=== PATIENT | male | born 1960 | race Caucasian/White ===

== ENCOUNTER 2016-10-22 00:35 | Observation (INO) | payer OTHER ==
[2016-10-22] VITALS (10 sets, daily range): BP systolic 107–130; BP diastolic 63–84; PULSE 80–102; RESP 10–20; O2SAT 92–97
[~2016-10-22] VITALS: Ht 193 cm; Wt 101.6 kg
[2016-10-22] MEDS ORDERED: Ondansetron 2 mg/mL 2 mL Inj ONE (00:47)
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
[2016-10-22 00:58] LABS: BASOPHILS % (AUTO) 0.3 % (0-3); EOSINOPHILS % (AUTO) 2.1 % (0-5); MONOCYTES % (AUTO) 10.3 % (4-12); Mean Corpuscular Hemoglobin 29.5 pg (27.0-35.0); Mean Corpuscular Volume 84.6 fL (81-100); NEUTROPHILS % (AUTO) 66.3 % (40-74); Platelet Count 314 bil/L (150-400)
[2016-10-22 01:24] LABS: Magnesium 1.8 mg/dL (1.6-2.6); TROPONIN T < 0.010 ug/L (0.0-0.011)
[2016-10-22] MEDS ORDERED: Codeine-APAP 30-300 mg Tablet PO ONE (03:45)
[2016-10-22] MEDS ORDERED: Lactated Ringer's 1,000 ML IV SCH (06:02)
[2016-10-22] MEDS ORDERED: Ondansetron 2 mg/mL 2 mL Inj IVPUSH PRN (06:05)
[2016-10-22] MEDS ORDERED: Codeine-APAP 30-300 mg Tablet PO PRN (06:05)
[2016-10-22] MEDS ORDERED: Alum-Mag Hydrox-Simeth 30 mL Suspension PO PRN (06:05)
[2016-10-22] MEDS ORDERED: Pantoprazole 40 mg ER24 Tablet PO ONE (06:05)
[2016-10-22] MEDS ORDERED: GLIM1TAB PO (07:52)
[2016-10-22] MEDS ORDERED: LISI-571 PO (07:52)
[2016-10-22] MEDS ORDERED: METF1000 PO (07:52)
[2016-10-22] MEDS ORDERED: SIMV20TA4 PO (07:52)
[2016-10-22] MEDS ORDERED: ZOLP10TA5 PO (07:53)
[2016-10-22] MEDS: 0.9% Sodium Chloride 1,000 ML IV SCH ×2 (07:57→19:18)
[2016-10-22] MEDS ORDERED: Polyethylene Glycol (PEG) 17 Gm Powder PO PRN (08:00)
[2016-10-22] MEDS ORDERED: Glucose 40% Oral Gel 15 Gm Tube PO PRN (08:00)
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
[2016-10-22] MEDS ORDERED: Dextrose 10% 250 ML IV PRN (08:55)
[2016-10-22] MEDS: Insulin LISPRO 300 Unit/3 mL Inj SUBQ SCH ×5 (08:59→22:00)
[2016-10-22] MEDS: Codeine-APAP 30-300 mg Tablet PO PRN ×4 (09:00→23:42)
--- NOTE | 2016-10-22 09:27 | DRSVH ---
PROCEDURE: CT BRAIN WITHOUT CONTRAST ([id number]) INDICATIONS: syncope TECHNIQUE: Noncontrast 4.5 mm thick angled axial sections acquired from the foramen magnum to the vertex, with c oronal reformats. COMPARISON: None. FINDINGS: Preliminary report by manager night radiology Image quality: Excellent. CSF spaces: Basal cisterns are patent. No extra-axial fluid collections. Ventricles are symmetrica l in size and shape. There is global volume loss. Brain: No midline shift. No intracranial masses or hemorrhage. Rich-white matter interface is norm al. Chronic lacunar infarcts in the left basal ganglia laterally Skull and face: Calvarium and visualized facial bones are intact, without suspicious lesions. Calcif ications in the internal carotid arteries. Sinuses: Visualized sinuses 3 small retention cyst or polyp in the right maxillary sinus, otherwise sinuses and mastoids are clear. IMPRESSION: 1. No acute intracranial abnormality. 2. Age related cerebral atrophy and mild chronic deep white matter ischemic changes. 3. Chronic lacunar infarcts left basal ganglia. 4. Chronic right maxillary sinusitis. Findings are concordant with the preliminary report. Dictated by: Solomon Raya M.D. on 10/22/2016 at 9:21 Approved by: Solomon Raya M.D. on 10/22/2016 at 9:25
--- NOTE | 2016-10-22 09:43 | DRSVH ---
PROCEDURE: X-RAY CHEST ONE VIEW, PORTABLE ([id number]) INDICATIONS: syncope TECHNIQUE: One view of the chest was acquired. COMPARISON: None. FINDINGS: Surgical changes and devices: None. Lungs and pleura: No pleural effusions or pneumothorax. Lungs are clear. Mediastinum: Mediastinal contours appear normal. Heart size is normal. Bones and chest wall: No suspicious bony lesions. Overlying soft tissues appear unremarkable. IMPRESSION: No acute cardiopulmonary disease. Dictated by: Jose Henriquez Justus Interpreted: Doris Manzanares MD on 10/22/2016 at 8:55 Approved by: Doris Manzanares M.D. on 10/22/2016 at 9:41
--- NOTE | 2016-10-22 09:43 | DRSVH ---
PROCEDURE: X-RAY THORACIC SPINE, 2 VIEWS INDICATIONS: syncope/fall TECHNIQUE: 3 views of the thoracic spine were acquired. COMPARISON: [facility], CR, XR CHEST 1VW (PORTABLE), 10/22/2016, 1:15. FINDINGS: Bones: No fractures or dislocations. No suspicious bony lesions. 12 pairs of ribs are noted, and a ppear intact where visualized. Mild dextroscoliosis involving the upper thoracic spine. Flow and mu ltilevel osteophytes are present with ossification of the anterior longitudinal ligament as well as " squaring" appearance of the vertebral bodies. Multilevel disc degeneration present. Soft tissues: No paravertebral stripe thickening. IMPRESSION: 1. No fracture. 2. Sequela of radiographic findings within the thoracic spine which would raise the question of ankyl osing spondylitis. Recommend clinical correlation and if indicated CT could be performed for further assessment. Dictated by: Jose Henriquez [facility] Interpreted: Doris Manzanares MD on 10/22/2016 at 9:12 Approved by: Doris Manzanares M.D. on 10/22/2016 at 9:41
--- NOTE | 2016-10-22 09:53 | NUR ---
Social Work-initial assessment: Data:See initial assessment. Pt is a 56 y/o male who was admitted on 10/22/16 for vagal syncope per H&P. Pt's insurance is [employer] and PCP is Dr. Ferraro at [facility]. EMR reviewed. SW met with pt at bedside, SW role explained. Pt is alert and oriented x3. Pt resides at home alone in a single level home in [facility] where he remains independent with ADLS. Pt uses either a cane or fww at baseline and does drive. Pt has history of HH in 2010, but cannot remember the name of the company and he has no SNF history. Pt has no terminal supervisor care insurance or VA benefits. SW discussed DPOA/ advanced directive, information has been provided. Pt confirms he does have insurance and his mother is bringing in his insurance card today, pt states it is blue cross/blue [employer]. No concerns noted at this time for pt's capacity for self care per RN or MD. MD has placed an order for PT evaluation. SW provided pt with discharge planning checklist and encouraged pt to call with any questions, phone number provided on white board in room. SW to follow up post PT if needs arise and MD Orders. Pt confirms his mother or friend will provide transport home. SW will continue to follow. Assessment:Pt has is independent at baseline. Plan:Pt to discharge home when medically stable via POV. PT evaluation is pending. SW to follow up post PT if needs arise and MD Orders. SW will continue to follow. LIVIA Galvan Addendum: 10/22/16 at 0958 by FLORINA EDEN Amended: Links added.
--- NOTE | 2016-10-22 15:13 | DRSVH ---
[facility] [address] [facility] [place] [address] Echocardiogram Report Name: JOSÉ COLORADO Study Date: 10/22/2016 Height: 76 in Hospital Exam Location: [facility] Weight: 223 lb Gender: Male BSA: 2.3 m2 : 1960 Age: 56 yrs BP: 130/84 mmHg Reason For Study: Syncope Ordering Physician: Performed By: Franchesca Paulino Interpretation Summary 1. Normal left ventricular size, wall thickness and systolic function with an estimated EF of 55 to 60% 2. Normal right ventricular size and systolic function. The estimated right atrial pressure is low. 3. No evidence for valvular pathology 4. A saline contrast study is positive for an interatrial shunt. There is no old study for comparison Procedure: A two-dimensional transthoracic echocardiogram with color flow and Doppler was performed. The study quality was technically adequate. There is no prior echocardiogram noted for this patient. The patient was in normal sinus rhythm during the exam. The patient had occasional PVCs during the exam. Left Ventricle: The left ventricle is normal in size. There is normal left ventricular wall thickness. The ejection fraction is estimated to be 55-60%. Septal motion is consistent with conduction abnormality. No obvious focal wall motion abnormalities. Assessment of diastolic parameters indicates a relaxation abnormality of the left ventricle, consistent with normal filling pressures. Right Ventricle: The right ventricle is normal in size and function. Atria: Both atria are normal in size. The atrial septum is aneurysmal. Injection of contrast documented an interatrial shunt. Mitral Valve: Leaflets appear thin with normal excursion. There is no mitral regurgitation noted. Aortic Valve: The aortic valve is trileaflet. The aortic valve opens well. No aortic regurgitation is present. Tricuspid Valve: The tricuspid valve is not well visualized, but is grossly normal. No tricuspid regurgitation. Pulmonary artery pressures cannot be estimated because of the lack of a measurable TR jet velocity. Pulmonic Valve: The pulmonic valve is not well seen, but is grossly normal. There is trace pulmonic regurgitation. Great Vessels: The aortic root is normal size. The ascending aorta is at the upper limits of normal in size. The IVC is of normal diameter and collapses greater than 50% with a sniff. This suggests a low right atrial pressure of 3 mm Hg. Pericardium/ Pleura There is no pericardial effusion. MMode/2D Measurements & Calculations LVIDd: 4.6 cm RA long axis LVOT diam LVIDs: 3.3 cm LA A2 area: 17.7 cm FS: 28.2 % LA A4 area: 14.3 cm RA area AoV Opening EPSS: 0.85 cm LA length (vol): 5.0 cm IVSd: 0.95 cm LA vol: 43.3 ml : 12.4 cm Ao root diam LVPWd: 0.98 cm LA vol index RA vol : 29.6 ml Aortic Jxn RA IVC diam: 1.0 cm : 12.8 mm2 asc Aorta Diam: 3.4 cm LV chavarria. diameter/BSA LV sys. diameter/BSA RVD1 (basal) RVD2 (mid) (cm/m^2): 2.0 (cm/m^2): 1.4 : 2.8 cm TAPSE: 1.8 cm Doppler Measurements & Calculations Ao V2 max MV E max brad MV E/A: 0.70 PA V2 max : 164.7 cm/sec : 78.3 cm/sec Med Peak E' Brad : 71.3 cm/sec Ao max P.8 mmHg MV A max brad PA mean PG Ao mean P.1 mmHg : 112.2 cm/sec E/E' med: 11.2 LVOT Max Brad Lat Peak E' Brad PA Accel Time : 123.5 cm/sec : 0.13 sec E/E' lat: 7.6 FELIPA(I,D): 3.3 cm E/e' average: 9.4 sev ratio: 0.76 MV dec time: 0.24 sec Ao V2 mean LV V1 max PG PA V2 mean : 130.1 cm/sec : 55.7 cm/sec Ao V2 VTI: 31.0 cmLV V1 VTI: 23.6 cm FELIPA(V,D): 3.3 cm2 FELIPA indexed to BSA (cm^2/m^2): 1.4 Reading Physician:03:12 PM
[2016-10-22] MEDS ORDERED: BUPRENORPHINE 0.3 MG/ML IV PRN (15:40)
[2016-10-22] MEDS ORDERED: Acetaminophen IV 1,000 MG in IV Premix 1 EACH IV PRN (15:45)
--- NOTE | 2016-10-22 15:54 | DRSVH ---
PROCEDURE: US BILATERAL DUPLEX DOPPLER IMAGING OF THE CAROTIDS ([id number]) INDICATIONS: syncope TECHNIQUE: Color and pulse Doppler interrogation was performed of both carotid systems, with image documentation and velocity measurements. COMPARISON: None. FINDINGS: All stenosis calculations are based on NASCET criteria. Right side: Brachial blood pressure: 113/71 mm Hg. Common Carotid Artery(Distal) PSV: 113.90 cm/s Internal Carotid Artery PSV- Proximal: 101 cm/s Mid-lon.70 cm/s Distal: 102.60 cm/s EDV - Proximal: 23.60 cm/s Mid-lon.80 cm/s Distal: 26.10 cm/s External Carotid Artery(Proximal) PSV: 147.20 cm/s ICA/CCA PSV ratio: 1.1 Rich scale imaging description: Minimal plaque. Percent internal carotid artery stenosis: 50-69% stenosis. Vertebral artery: Flow direction is antegrade. Left side: Brachial blood pressure: 117/69 mm Hg. Common Carotid Artery(Distal) PSV: 136.30 cm/s Internal Carotid Artery PSV - Proximal: 112.50 cm/s Mid-lon.20 cm/s Distal: 99.50 cm/s EDV - Proximal: 22.20 cm/s Mid-lon.40 cm/s Distal: 24.90 cm/s External Carotid Artery(Proximal) PSV: 106.90 cm/s ICA/CCA PSV ratio: 0.8 Rich scale imaging description: Minimal plaque. Percent internal carotid artery stenosis: Less than 50% stenosis. Vertebral artery: Flow direction is antegrade. IMPRESSION: 1. 50-69% right internal carotid artery stenosis. 2. Less than 50% left internal carotid artery stenosis. Dictated by: Jose HUANG Interpreted: Vivek Raya MD on 10/22/2016 at 14:45 Approved by: Solomon Raya M.D. on 10/22/2016 at 15:52
[2016-10-22] MEDS ORDERED: HYDROmorphone 0.5 mg/0.5 mL iSecure Syringe IVPUSH PRN (16:14)
--- NOTE | 2016-10-22 19:16 | DRSVH ---
PROCEDURE: MRI STROKE PROTOCOL ([id number]) Pre- and post-contrast brain MRI, non-contrast brain MR angiogram, pre- and postcontrast neck MR jaziel ogram INDICATIONS: syncope, r/o stroke TECHNIQUE: Brain: Noncontrast axial T1 spin echo, axial T2 fast spin echo, sagittal and axial FLAIR, coronal T2 fast spin echo, axial gradient echo, axial diffusion and ADC through the brain. After the administr ation of contrast, axial 3D VIBE of the cranial vasculature and brain. Brain MRA: Non-contrast 3-D time of flight MR angiogram, with multiple xcrfqmf-zykoqglhk-pljdjgdvcb (MIP) reformats performed. Neck MRA: Axial and sagittal TruFISP through the neck. Coronal dynamic MR angiogram during administ ration of contrast in the arterial and venous phases, with 3-dimenstional umumiiv-ohtlqbcho-zbvkoljiv n (MIP) reformats constructed from subtraction images. COMPARISON: [facility], CT, CT BRAIN WO CON, 10/22/2016, 1:12. FINDINGS: Image quality: Excellent. BRAIN: The ventricular system and cortical sulci demonstrate atrophy, consistent for the patient's stated ag e. There are areas of increased T2/FLAIR signal intensity within the periventricular and subcortical white matter. There is no acute intra-or extra axial fluid collection. No acute hemorrhage, or midli ne shift. There is a.c. signal focus arising from the quadrigeminal plate cistern and projecting post erior left laterally. It is nonenhancing and measures approximately 37 mm transverse by 29 mm AP. It overlies the left posterior horn of the lateral ventricle. There is no surrounding mass effect. There is no enhancement. Brainstem is unremarkable. There are no areas of restricted diffusion. Globes are symmetrical. Sinuses are aerated. Osseous structures are intact. BRAIN MR ANGIOGRAM: The posterior circulation demonstrates a minimal right vertebral artery dominance. Basilar artery and posterior cerebral arteries demonstrate no areas of hemodynamically significant stenosis, vascular o cclusion or aneurysmal dilation. Posterior communicating arteries are within normal limits. The anterior circulation, including the anterior and middle cerebral arteries, as well as internal ca rotid arteries demonstrates no areas of hemodynamically significant stenosis, vascular occlusion or a neurysmal dilation. NECK MR ANGIOGRAM: The origins of the left and right common, internal and external carotid arteries demonstrate no areas of hemodynamically significant stenosis, vascular occlusion or aneurysmal dilation. Origins of the l eft and right vertebral arteries demonstrate no areas of hemodynamically significant stenosis, vascul ar occlusion or aneurysmal dilation. Aortic arch demonstrates conventional anatomy. Limited, visualiz ed portions subclavian vasculature are unremarkable. IMPRESSION: 1. No acute intracranial process. No acute ischemia. 2. No areas of hemodynamically significant stenosis, vascular occlusion or aneurysmal dilation within the anterior circulation. 3. No areas of hemodynamically significant stenosis, vascular occlusion or aneurysmal dilation within the posterior circulation. 4. No areas of hemodynamically significant stenosis, vascular occlusion or aneurysmal dilation within the neck vasculature. 5. 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 The estimate of stenosis included in the report of the imaging study was calculated using the NASCET method Dictated by: Lisa Quevedo M.D. on 10/22/2016 at 19:06 Approved by: Lisa Quevedo M.D. on 10/22/2016 at 19:14
--- NOTE | 2016-10-22 19:21 | NUR ---
Pain Pain satisfactorily controlled with Flexeril TID and Tylenol with codeine q 4 hours with ice applied to his lower back. Per the patient this has allowed him to nap and relax a bit. Unable to participate with PT or have orthostatic BP's done though due to his back pain. IV Toradol given for MRI procedure.
--- NOTE | 2016-10-22 19:40 | PCM.ADCARE ---
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 long Bone Decisional Capacity: Good Subjective: I reviewed his current medical conditions new-onset syncope, diabetes mellitus, chronic severe pain and aggressive care including intubation and potential mechanical ventilation should he be unable to breath on his own; also discussed who would speak on his behalf should she be unable to do so and discussed what conversation he had had with her family so they understand his desires if such situation occurred now or in the future. 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 Is here for a syncope workup. His diabetes and hyperlipidemia are well controlled. He has no alcohol or smoking habits. We will help patient determine the etiology of his syncope, and offer him appropriate therapy to get back to his baseline Plan: Diagnostic workup that includes cardiac echo, carotid ultrasound, MR stroke protocol were ordered Physical therapy, pain control for back pain CODE STATUS: Full code Alternate decision makers: Parents followed by siblings Time Spent Adv.Care Planning: Total time spent [id number] and education directly related to advanced planning 30 min Adv. Care Plan Documenation: As above and also documented in the H&P Veronica Bone DO Oct 22, 2016 19:39
[2016-10-23] VITALS (9 sets, daily range): BP systolic 100–145; BP diastolic 65–83; PULSE 70–93; RESP 16–22; O2SAT 92–94
--- NOTE | 2016-10-23 02:34 | NUR ---
Activity/Pain Patient in bed all of shift so far d/t back pain. Rating it about a 4/10 upon assessments. Receiving Tylenol with Codeine with effective results. Noted to be resting with eyes closed upon reassessments.
[2016-10-23] MEDS: Codeine-APAP 30-300 mg Tablet PO PRN ×4 (03:59→22:00)
[2016-10-23] MEDS: 0.9% Sodium Chloride 1,000 ML IV SCH ×2 (04:50→15:14)
[2016-10-23] MEDS: Insulin LISPRO 300 Unit/3 mL Inj SUBQ SCH ×4 (10:29→21:50)
--- NOTE | 2016-10-23 11:08 | NUR ---
Evaluation completed. Please go to "Notes" then click on "Assessments and Notes" (bottom left corner of screen). Then select appropriate discipline tab on top of screen.
--- NOTE | 2016-10-23 13:37 | NUR ---
Evaluation completed. Please go to "Notes" then click on "Assessments and Notes" (bottom left corner of screen). Then select appropriate discipline tab on top of screen.
--- NOTE | 2016-10-23 13:51 | NUR ---
Social Work- Readiness for Discharge/Multidisciplinary Rounds Data: EMR reviewed. Pt is on day 1 of hospitalization under observation. Pt discussed in multidisciplinary rounds, pt to be seen by PT today. No SW needs identified in rounds. Pt is anticipated to d/c tomorrow. SW met with pt at bedside to check in and assess for any unmet needs. Pt denied any questions or concerns related to discharge. PT has evaluated pt, recommending home with progression of mobility. Pt has AD at home and no steps to enter. SW will continue to follow. Assessment: Pt who is independent at baseline with ADLs and self-care. Plan: Pt likely to d/c home with mother to transport via POV. Pt is likely to be cleared for home by PT pending progress tomorrow. Pt has necessary AD at home as needed for discharge. SW will continue to follow for discharge planning needs. LIVIA Chris
--- NOTE | 2016-10-23 15:37 | NUR ---
MOBILITY Patient was able to sit on edge of bed with some assist getting there. States the pain between shoulder blades is gone today. Pain still present in mid-lower back. Administered IV dilaudid prior to patient working with PT, patient was able to stand and take a few steps at bedside. Continuing to manage pain with tylenol #3 and flexeril.
--- NOTE | 2016-10-23 16:52 | PCM.PNMED ---
Subjective Date of Service Oct 23, 2016 Subjective Patient is seen and examined. He states that he was able to get up today for orthostatic blood pressure checks, did work with PT OT a little bit today he did accept IV Dilaudid for pain control today. He is agreeable to taking the pain medication and starting to work with physical therapy. Discussed diagnosis , workup, imaging, and treatment plan with patient and he expressed an verbalized his understanding. Exam Vital Signs Vital Sign - Last Date Time Temp Pulse Resp B/P Pulse Ox O2 Delivery O2 Flow Rate FiO2 10/23/16 14:56 36.3 76 16 116/73 92 Room Air Intake and Output 10/22/16 10/22/16 10/23/16 Cumulative From/Thru 15:00 23:00 07:00 10/22/16 00:45 - 10/23/16 06:41 Intake Total 2348 ml 1207 ml 3555 ml Output Total 100 ml 200 ml 300 ml Balance 2248 ml 1007 ml 3255 ml Intake Oral 1372 ml 250 ml 1622 ml IV Total 976 ml 957 ml 1933 ml Output Urine Total 100 ml 200 ml 300 ml # Bowel Movements 1 1 Exam Gen.: No acute distress laying in bed HEENT: Normocephalic, atraumatic Heart: Regular rate and rhythm no murmurs Lungs clear to auscultation bilaterally on anterior auscultation was possible Abdomen large obese, soft nondistended Extremities atrophic UE and LE as before, extremities have no swelling. Neurological: No focal deficits alert and oriented by 3 Lab and Diagnostics Result Diagram: 10/22/16 0054 10/23/16 0550 X-Rays, CTs and MRIs PROCEDURE: X-RAY THORACIC SPINE, 2 VIEWS INDICATIONS: syncope/fall T IMPRESSION: 1. No fracture. 2. Sequela of radiographic findings within the thoracic spine which would raise the question of ankylosing spondylitis. Recommend clinical correlation and if indicated CT could be performed for further assessment. Dictated by: Jose HUANG Interpreted: Doris Manzanares MD on 10/22/2016 at 9:12 Approved by: Doris Manzanares M.D. on 10/22/2016 at 9:41 PROCEDURE: US BILATERAL DUPLEX DOPPLER IMAGING OF THE CAROTIDS ([id number]) INDICATIONS: syncope IMPRESSION: 1. 50-69% right internal carotid artery stenosis. 2. Less than 50% left internal carotid artery stenosis. Dictated by: Jose Henriquez RR Interpreted: Vivek Raya MD on 10/22/2016 at 14: 45 Approved by: Solomon Raya M.D. on 10/22/2016 at 15:52 PROCEDURE: CT BRAIN WITHOUT CONTRAST ([id number]) INDICATIONS: syncope IMPRESSION: 1. No acute intracranial abnormality. 2. Age related cerebral atrophy and mild chronic deep white matter ischemic changes. 3. Chronic lacunar infarcts left basal ganglia. 4. Chronic right maxillary sinusitis. Findings are concordant with the preliminary report. Dictated by: Solomon Raya M.D. on 10/22/2016 at 9:21 Approved by: Solomon Raya M.D. on 10/22/2016 at 9:25 Cardiac Echo Impressions Echocardiogram Report Name: JOSÉ COLORADO Study Date: 10/22/2016 Height: 76 in Hospital Exam Location: [facility] Weight: 223 lb Gender: Male BSA: 2.3 m2 : 1960 Age: 56 yrs BP: 130/84 mmHg Reason For Study: Syncope Ordering Physician: Performed By: Franchesca Paulino Interpretation Summary 1. Normal left ventricular size, wall thickness and systolic function with an estimated EF of 55 to 60% 2. Normal right ventricular size and systolic function. The estimated right atrial pressure is low. 3. No evidence for valvular pathology 4. A saline contrast study is positive for an interatrial shunt. Reading Physician:03:12 PM Assessment & Plan This is a 56-year-old male with chronic back pain issues baseline muscle weakness and gait instability due to remote injuries , better control diabetes , hyperlipidemia for which she is on a statin is presenting after suffering syncopal events at home Assessment # syncope secondary to vasovagal response resolved upon arrival to ER acute -- Carotid ultrasound is ordered: Shows 50-69% right internal carotid artery stenosis. -- Cardiac echo was ordered and performed: Showed no valvular pathology but is remarkable for intra-atrial shunt, increased risk for stroke -- Trend troponins neg, telemetry monitoring: Negative -- Upon reviewing the echo and carotid scan, MRI stroke protocol is ordered, as his neuro exam was a difficult one Horacio to baseline deficits, also notable for some speech, unclear what his baseline is -- MR sTroke showed no conern for acute stroke -- Requested records from [facility] system from his PCP Dr. Mauro -- TSH with in the normal, Lipid panel within normal, A1c 5.9 -- Discuss with the patient that he cannot drive a motor vehicle until cleared by his PCP -- UAs ordered reflex culture: This has not been a sent, follow-up with nursing in the a.m. -- Swallow evaluation: Patient is not thought to be at risk for aspiration -- Daily aspirin -- Discussed not driving a motor vehicle till he seen by PCP. Patient verbalized his understanding -- We will discuss a plan for his follow-up for intra-arterial shunt as well as arachnoid cyst per [facility]: I have pushed images so to them, have not had a chance to call them. Please call and discuss this with [facility] in the a.m. -- Orthostatics are not yet performed, follow-up with nursing in the a.m. Assessment # dehydration active -- Based on patient's BUN, concentrated urine , he appears to be dehydrated -- We will consider increase to 1 50 mL/h -- UAs ordered reflex culture: This has not been a sent, follow-up with nursing in the a.m. Assessment # of back pain and chronic acutely worsened and present on admission -- He only takes Tylenol codeine, Flexeril and Lidoderm patch at home, was able to manage for the most part, currently not able to get up out of the bed -- 0.25 mg IV Dilaudid every 3 hours when necessary, continue methocarbamol 1000 mg 4 times a day when necessary, Tylenol No. 3 2 tablets every 4 hours when necessary. Continue ketorolac IV -- Physical therapy is ordered Assessment #diabetes type II [id number] chronic presumed well controlled -- Hold glimepiride and metformin PO medications -- low sliding scale insulin, before meals it just checks -- A1c is ordered and 5.9 showing good control Assessment # hyperlipidemia chronic presumed well-controlled -- -- Continue home medications Assessment # leukocytosis acute present on admission resolved -- Could be leukomoid reaction -- Monitor with daily labs Assessment # concern for ankylosing spondylitis probably chronic -- Based on thoracic spine and C-spine neck x-rays -- HLA-B27 is ordered, as well as ESR and CRP -- SI joint B/L imaging to check for fusion Assessment #arachnoid cyst chronic active -- As noticed on patient's MRI -- Mildly symptomatic once a treated but up-to-date. Symptoms include seizures , focal neurological deficits etc. -- Discuss f/u with [facility] neuro prior to discharge Code Status: Full Code: POA: Parents followed by siblings High-risk medication: Dilaudid IV Patient is admitted under Inpatient status with expected length of stay greater than 2 midnights due to severity of presenting symptoms, risk of adverse event, and complexity of treatment plan. Patient related to mobilize better before going home, increased pain medication and physical therapy. He is asked not to drive a motor vehicle unless cleared by PCP. Pain Evaluation: Adequate Pain Control Resuscitation Status: CPR: Attempt Resuscitation (parents followed by siblings are at the ADM) Time spent 30 min Veronica Bone DO Oct 23, 2016 16:52
[2016-10-24 00:14] VITALS: BP 102/67; PULSE 71; RESP 18; O2SAT 93
[2016-10-24 02:56] LABS: APPEARANCE,URINE CLEAR (CLEAR,HAZY); COLOR,URINE YELLOW (YELLOW); OCCULT BLOOD,URINE NEGATIVE (NEGATIVE); PH,URINE 5.5 (5.0-8.0); UROBILINOGEN,URINE NORMAL (NORMAL)
[2016-10-24] MEDS: 0.9% Sodium Chloride 1,000 ML IV SCH (04:32)
[2016-10-24 04:37] VITALS: BP 110/67; PULSE 71; RESP 16; O2SAT 91
--- NOTE | 2016-10-24 06:15 | NUR ---
Activity Pt using urinal in bed. Has not been OOB this shift. Repositions ind in bed. Had c/o pain to low back 4 out of 10 -ordered Flexeril and Tylenol #3 helps alleviate pain, given once this shift. Pt agrees to get OOB this a.m. to attempt orthostatic BP's. Has had no c/o dizziness/N/V/CP this shift. Uses home CPAP HS and is RA during the day. SAO2 91-93%. Per MD, NS increased to 150mls/H, UA was collected and sent, lungs sounds remain clear with reassess this a.m.
[2016-10-24] MEDS: Insulin LISPRO 300 Unit/3 mL Inj SUBQ SCH ×2 (08:00→12:00)
[2016-10-24 09:36] VITALS: BP 154/90; PULSE 92; RESP 16; O2SAT 96
[2016-10-24 09:46] VITALS: BP 154/84; PULSE 110; RESP 18
[2016-10-24 09:57] VITALS: PULSE 62
--- NOTE | 2016-10-24 13:27 | PCM.PNMED ---
Subjective Date of Service Oct 24, 2016 Subjective Patient notes that he feels a bit better this morning. Back pain is less severe. Exam Vital Signs Vital Sign - Last Date Time Temp Pulse Resp B/P Pulse Ox O2 Delivery O2 Flow Rate FiO2 10/24/16 11:34 Room Air 10/24/16 09:57 62 10/24/16 09:46 18 154/84 10/24/16 09:36 36.7 96 Intake and Output 10/23/16 10/23/16 10/24/16 Cumulative From/Thru 15:00 23:00 07:00 10/22/16 00:45 - 10/24/16 06:13 Intake Total 2565 ml 1560 ml 7680 ml Output Total 700 ml 910 ml 1910 ml Balance 1865 ml 650 ml 5770 ml Intake Oral 1344 ml 500 ml 3466 ml IV Total 1221 ml 1060 ml 4214 ml Output Urine Total 700 ml 910 ml 1910 ml # Bowel Movements 0 1 Exam Constitutional: Middle-aged male in no acute distress Head: Normocephalic atraumatic Chest: Clear to auscultation Cor: Regular rate and rhythm S1-S2 without murmur Abdomen: Soft nontender bowel sounds present Extremities: No pedal edema Neuro: Alert and oriented 3, motor strength is intact bilaterally Lab and Diagnostics Laboratory Tests 72 Hours Test 10/22/16 00:54 10/22/16 06:28 10/22/16 12:33 10/23/16 05:50 White Blood Count 12.0th/mm3 (3.8-10.1) Red Blood Count 5.45mil/mm3 (4.40-5.80) Hemoglobin 16.1g/dL (13.8-17.2) Hematocrit 46.1% (41.0-50.0) Mean Corpuscular Volume 84.6fL (81-100) Mean Corpuscular Hemoglobin 29.5pg (27.0-35.0) Mean Corpuscular Hemoglobin Concent 34.9% (32.0-37.0) Red Cell Distribution Width 13.9% (12.3-15.4) Platelet Count 314bil/L (150-400) Neutrophils (%) (Auto) 66.3% (40-74) Lymphocytes (%) (Auto) 20.7% (14-46) Monocytes (%) (Auto) 10.3% (4-12) Eosinophils (%) (Auto) 2.1% (0-5) Basophils (%) (Auto) 0.3% (0-3) Sodium Level 141mEq/L (134-144) 138mEq/L (134-144) Potassium Level 4.1mEq/L (3.5-5.2) 4.1mEq/L (3.5-5.2) Chloride Level 102mEq/L (97-108) 105mEq/L (97-108) Carbon Dioxide Level 18mmol/L (18-29) 19mmol/L (18-29) Blood Urea Nitrogen 15mg/dL (6-24) 23mg/dL (6-24) Creatinine 0.79mg/dL (0.76-1.27) 0.73mg/dL (0.76-1.27) Estimat Glomerular Filtration Rate 107mL/min (>59) 118mL/min (>59) Glucose Level 157mg/dL (60-99) 147mg/dL (60-99) Hemoglobin A1c 5.9% (4.8-5.6) Calcium Level 9.4mg/dL (8.5-10.1) 8.2mg/dL (8.5-10.1) Magnesium Level 1.8mg/dL (1.6-2.6) 1.7mg/dL (1.6-2.6) Total Bilirubin 0.5mg/dL (0.0-1.2) 0.8mg/dL (0.0-1.2) Aspartate Amino Transf (AST/SGOT) 14U/L (0-50) 11U/L (0-50) Alanine Aminotransferase (ALT/SGPT) 18U/L (0-44) 12U/L (0-44) Alkaline Phosphatase 73U/L (25-150) 55U/L (25-150) Troponin T < 0.010ug/L (0.0-0.011) 0.010ug/L (0.0-0.011) < 0.010ug/L (0.0-0.011) Total Protein 7.5g/dL (6.4-8.4) 6.0g/dL (6.4-8.4) Albumin 4.1g/dL (3.4-5.0) 3.3g/dL (3.4-5.0) Thyroid Stimulating Hormone (TSH) 1.260uIU/mL (0.450-4.500) Erythrocyte Sedimentation Rate 4mm/hr (0-30) C-Reactive Protein 4.4mg/dL (0.0-0.5) Triglycerides Level 103mg/dL (0-149) Cholesterol Level 118mg/dL (100-199) LDL Cholesterol, Calculated 64.400mg/dL (0-99) VLDL Cholesterol 20.600mg/dL HDL Cholesterol 33mg/dL (>39) Cholesterol/HDL Ratio 3.58 (0.0-4.4) Test 10/23/16 17:24 10/24/16 02:45 10/24/16 06:32 Urine Color Yellow (YELLOW) Urine Appearance Clear (CLEAR,HAZY) Urine pH 5.5 (5.0-8.0) Urine Specific [place] 1.015 (1.003-1.035) Urine Protein Negativemg/dL (NEG,TRACE) Urine Glucose (UA) Negativemg/dL (NEGATIVE) Urine Ketones Negativemg/dL (NEGATIVE) Urine Occult Blood Negative (NEGATIVE) Urine Nitrite Negative (NEGATIVE) Urine Bilirubin Negative (NEGATIVE) Urine Urobilinogen Normalmg/dL (NORMAL) Urine Leukocyte Esterase Negative (NEGATIVE) Urine RBC 0-2/hpf (0-2) Urine WBC 0-5/hpf (0-5) Urine Epithelial Cells Occasional/hpf (NONE-MOD) Urine Crystals None seen (NONE SEEN) Urine Bacteria None/hpf (NONE-FEW) Urine Hyaline Casts None/lpf (NONE) Urine Granular Casts None seen (NONE SEEN) Urine Waxy Casts None seen (NONE SEEN) Urine Red Blood Cell Casts None seen (NONE SEEN) Urine White Blood Cell Casts None seen (NONE SEEN) Urine Mucus None seen (None Seen) Urine Trichomonas None seen (NONE SEEN) Urine Yeast None (NONE SEEN) Urinalysis Comment None Urine Culture Reflexed Not indicated Urine Opiates Screen Positive Urine Methadone Screen Negative Urine Barbiturates Screen Negative Urine Amphetamines Screen Negative Urine Benzodiazepines Screen Negative Urine Cocaine Metabolite Screen Negative Urine Cannabinoids Screen Negative White Blood Count 4.9th/mm3 (3.8-10.1) Sodium Level 138mEq/L (134-144) Potassium Level 4.2mEq/L (3.5-5.2) Chloride Level 104mEq/L (97-108) Carbon Dioxide Level 20mmol/L (18-29) Blood Urea Nitrogen 13mg/dL (6-24) Creatinine 0.61mg/dL (0.76-1.27) Estimat Glomerular Filtration Rate 145mL/min (>59) Glucose Level 111mg/dL (60-99) Calcium Level 8.5mg/dL (8.5-10.1) Result Diagram: 10/24/16 0632 10/24/16 0632 X-Rays, CTs and MRIs PROCEDURE: X-RAY THORACIC SPINE, 2 VIEWS INDICATIONS: syncope/fall T IMPRESSION: 1. No fracture. 2. Sequela of radiographic findings within the thoracic spine which would raise the question of ankylosing spondylitis. Recommend clinical correlation and if indicated CT could be performed for further assessment. Dictated by: Jose HUANG Interpreted: Doris Manzanares MD on 10/22/2016 at 9:12 Approved by: Doris Manzanares M.D. on 10/22/2016 at 9:41 PROCEDURE: US BILATERAL DUPLEX DOPPLER IMAGING OF THE CAROTIDS ([id number]) INDICATIONS: syncope IMPRESSION: 1. 50-69% right internal carotid artery stenosis. 2. Less than 50% left internal carotid artery stenosis. Dictated by: Jose HUANG Interpreted: Vivek Raya MD on 10/22/2016 at 14: 45 Approved by: Solomon Raya M.D. on 10/22/2016 at 15:52 PROCEDURE: CT BRAIN WITHOUT CONTRAST ([id number]) INDICATIONS: syncope IMPRESSION: 1. No acute intracranial abnormality. 2. Age related cerebral atrophy and mild chronic deep white matter ischemic changes. 3. Chronic lacunar infarcts left basal ganglia. 4. Chronic right maxillary sinusitis. Findings are concordant with the preliminary report. Dictated by: Solomon Raya M.D. on 10/22/2016 at 9:21 Approved by: Solomon Raya M.D. on 10/22/2016 at 9:25 PROCEDURE: MRI STROKE PROTOCOL ([id number]) Pre- and post-contrast brain MRI, non-contrast brain MR angiogram, pre- and postcontrast neck MR angiogram INDICATIONS: syncope, r/o stroke TECHNIQUE: Brain: Noncontrast axial T1 spin echo, axial T2 fast spin echo, sagittal and axial FLAIR, coronal T2 fast spin echo, axial gradient echo, axial diffusion and ADC through the brain. After the administration of contrast, axial 3D VIBE of the cranial vasculature and brain. Brain MRA: Non-contrast 3-D time of flight MR angiogram, with multiple maximum- intensity-projection (MIP) reformats performed. Neck MRA: Axial and sagittal TruFISP through the neck. Coronal dynamic MR angiogram during administration of contrast in the arterial and venous phases, with 3-dimenstional cpmkxsi-oumhiklsx-aaysdmgvza (MIP) reformats constructed from subtraction images. COMPARISON: [facility], CT, CT BRAIN WO CON, 10/22/2016, 1:12. FINDINGS: Image quality: Excellent. BRAIN: The ventricular system and cortical sulci demonstrate atrophy, consistent for the patient's stated age. There are areas of increased T2/FLAIR signal intensity within the periventricular and subcortical white matter. There is no acute intra-or extra axial fluid collection. No acute hemorrhage, or midline shift. There is a.c. signal focus arising from the quadrigeminal plate cistern and projecting posterior left laterally. It is nonenhancing and measures approximately 37 mm transverse by 29 mm AP. It overlies the left posterior horn of the lateral ventricle. There is no surrounding mass effect. There is no enhancement. Brainstem is unremarkable. There are no areas of restricted diffusion. Globes are symmetrical. Sinuses are aerated. Osseous structures are intact. BRAIN MR ANGIOGRAM: The posterior circulation demonstrates a minimal right vertebral artery dominance. Basilar artery and posterior cerebral arteries demonstrate no areas of hemodynamically significant stenosis, vascular occlusion or aneurysmal dilation. Posterior communicating arteries are within normal limits. The anterior circulation, including the anterior and middle cerebral arteries, as well as internal carotid arteries demonstrates no areas of hemodynamically significant stenosis, vascular occlusion or aneurysmal dilation. NECK MR ANGIOGRAM: The origins of the left and right common, internal and external carotid arteries demonstrate no areas of hemodynamically significant stenosis, vascular occlusion or aneurysmal dilation. Origins of the left and right vertebral arteries demonstrate no areas of hemodynamically significant stenosis, vascular occlusion or aneurysmal dilation. Aortic arch demonstrates conventional anatomy. Limited, visualized portions subclavian vasculature are unremarkable. IMPRESSION: 1. No acute intracranial process. No acute ischemia. 2. No areas of hemodynamically significant stenosis, vascular occlusion or aneurysmal dilation within the anterior circulation. 3. No areas of hemodynamically significant stenosis, vascular occlusion or aneurysmal dilation within the posterior circulation. 4. No areas of hemodynamically significant stenosis, vascular occlusion or aneurysmal dilation within the neck vasculature. 5. 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 The estimate of stenosis included in the report of the imaging study was calculated using the NASCET method Dictated by: Lisa Quevedo M.D. on 10/22/2016 at 19:06 Approved by: Lisa Quevedo M.D. on 10/22/2016 at 19:14 Cardiac Echo Impressions Echocardiogram Report Name: JOSÉ COLORADO Study Date: 10/22/2016 Height: 76 in Hospital Exam Location: [facility] Weight: 223 lb Gender: Male BSA: 2.3 m2 : 1960 Age: 56 yrs BP: 130/84 mmHg Reason For Study: Syncope Ordering Physician: Performed By: Franchesca Paulino Interpretation Summary 1. Normal left ventricular size, wall thickness and systolic function with an estimated EF of 55 to 60% 2. Normal right ventricular size and systolic function. The estimated right atrial pressure is low. 3. No evidence for valvular pathology 4. A saline contrast study is positive for an interatrial shunt. Reading Physician:03:12 PM Assessment & Plan This is a 56-year-old male with chronic back pain issues baseline muscle weakness and gait instability due to remote injuries , better control diabetes , hyperlipidemia for which she is on a statin is presenting after suffering syncopal events at home Assessment # syncope secondary to vasovagal response resolved upon arrival to ER acute -- Carotid ultrasound is ordered: Shows 50-69% right internal carotid artery stenosis. -- Cardiac echo was ordered and performed: Showed no valvular pathology but is remarkable for intra-atrial shunt, increased risk for stroke -- Trend troponins neg, telemetry monitoring: Negative -- Upon reviewing the echo and carotid scan, MRI stroke protocol is ordered, as his neuro exam was a difficult one Horacio to baseline deficits, also notable for some speech, unclear what his baseline is -- MR sTroke showed no conern for acute stroke -- Requested records from [facility] from his PCP Dr. Mauro -- TSH with in the normal, Lipid panel within normal, A1c 5.9 -- Discuss with the patient that he cannot drive a motor vehicle until cleared by his PCP -- UAs ordered reflex culture: This has not been a sent, follow-up with nursing in the a.m. -- Swallow evaluation: Patient is not thought to be at risk for aspiration -- Daily aspirin -- Discussed not driving a motor vehicle till he seen by PCP. Patient verbalized his understanding -- We will discuss a plan for his follow-up for intra-arterial shunt as well as arachnoid cyst per [facility]: I have pushed images so to them, have not had a chance to call them. Please call and discuss this with [place] neuro in the a.m. -- Orthostatics today are negative Assessment # dehydration active -- Based on patient's BUN, concentrated urine , he appears to be dehydrated -- We will consider increase to 1 50 mL/h Assessment # of back pain and chronic acutely worsened and present on admission -- He only takes Tylenol codeine, Flexeril and Lidoderm patch at home, was able to manage for the most part, currently not able to get up out of the bed -- 0.25 mg IV Dilaudid every 3 hours when necessary, continue methocarbamol 1000 mg 4 times a day when necessary, Tylenol No. 3 2 tablets every 4 hours when necessary. Continue ketorolac IV -- Physical therapy is ordered Assessment #diabetes type II [id number] chronic presumed well controlled -- Hold glimepiride and metformin PO medications -- low sliding scale insulin, before meals it just checks -- A1c is ordered and 5.9 showing good control Assessment # hyperlipidemia chronic presumed well-controlled -- -- Continue home medications Assessment # leukocytosis acute present on admission resolved -- Could be leukomoid reaction -- Monitor with daily labs Assessment # concern for ankylosing spondylitis probably chronic -- Based on thoracic spine and C-spine neck x-rays -- HLA-B27 is ordered, as well as ESR and CRP -- SI joint B/L imaging to check for fusion Assessment #arachnoid cyst chronic active -- As noticed on patient's MRI -- Discuss f/u with [facility] neuro prior to discharge Code Status: Full Code: POA: Parents followed by siblings High-risk medication: Dilaudid IV Patient is admitted under Inpatient status with expected length of stay greater than 2 midnights due to severity of presenting symptoms, risk of adverse event, and complexity of treatment plan. Patient related to mobilize better before going home, increased pain medication and physical therapy. He is asked not to drive a motor vehicle unless cleared by PCP. VTE Mechanical Devices: Intermittant Pneumatic CD Resuscitation Status: CPR: Attempt Resuscitation (parents followed by siblings are at the ADM) Time spent 20 minutes Katheryn Sanchez MD Oct 24, 2016 13:27
--- NOTE | 2016-10-24 14:43 | PCM.DIMED ---
Discharge Instructions Date of Service Oct 24, 2016 Dates of Hospitalization Oct 22, 2016 at 06:10 Discharge Diagnosis Discharge Diagnosis Vasovagal syncope, acute lower back pain Diet Discharge Diet: Heart Healthy Activity Discharge Activity: Other (progress as tolerated) Call your provider Call your provider for: Fever or Chills, Shortness of breath, Bleeding, Chest pain, Vomitting, Excessive diarrhea, Weakness (unilateral) Patient Instructions Follow-up with PCP in: Other (for 5 days, sooner if problems) Katheryn Sanchez MD Oct 24, 2016 14:43
[2016-10-24] MEDS ORDERED: CYCL10TA9 PO (14:44)
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
--- NOTE | 2016-10-24 15:10 | NUR ---
Discharge All discharge teaching and instructions done with pt and Mother at bedside. All questions and concerns addressed. IV d/c'd intact. Tele d/c'd. No items in the safe or pharmacy. Hard copy of RX with pt. Information and instructions given on Syncope. Pt to make apt and f/u with PCP provider.
--- NOTE | 2016-10-24 15:14 | NUR ---
Social Work- Discharge Data: EMR reviewed. Pt is on day 2 of hospitalization under observation. Pt discussed in multidisciplinary rounds, PT cleared pt for home with no AD needs. No SW needs identified in rounds. Pt discharged today. Pt discharged today with mother to transport via POV. No d/c needs. Assessment: Pt who is independent at baseline with ADLs and self-care. Plan: Pt to d/c home with mother to transport via POV. Pt has necessary AD at home as needed for discharge. Iris Patel MSW
--- NOTE | 2016-10-24 16:12 | DRSVH ---
PROCEDURE: X-RAY SACROILIAC JOINTS, THREE OR MORE VIEWS ([id number]) INDICATIONS: r/o ankyslosing spondylitis, BACK PAIN TECHNIQUE: 3 views of the sacroiliac joints were acquired. COMPARISON: [facility], CR, XR THORACIC SPINE 2VW, 10/22/2016, 3:57. FINDINGS: Bones: No bony erosions or ankylosis. No suspicious bony lesions. No fractures. Mild joint narrowi ng with periarticular osteophyte formation of the SI joints bilaterally. Healed fracture deformity i nvolving the proximal left humerus with fixation plates as well as left hip arthroplasty present in e xpected position. Degenerative changes in the lower lumbar spine. Soft tissues: Overlying bowel gas pattern is normal. No suspicious soft tissue densities. IMPRESSION: 1. Mild symmetric SI joint degeneration. 2. Degenerative change within the lumbar spine with protuberant osteophytes present where visualized. If indicated complete lumbar spine series could be performed for further assessment. 3. Healed fracture deformity proximal left femur with fixation hardware present as above. Dictated by: Jose Henriquez [facility] Interpreted: Shani Muhammad MD on 10/24/2016 at 13:37 Approved by: Shani Muhammad MD, PhD on 10/24/2016 at 16:10
== END 2016-10-24 15:10 | disposition home or self-care (01) ==
LOC: EDBD 00:35 → SED 00:35 → EDUNIT# 00:35 → OSC 06:10
PROVIDERS: ADMIT Hospitalist; ATTEND Specialist
DX: R55 Syncope and collapse (principal); E11.9 Type 2 diabetes mellitus without complications; E78.5 Hyperlipidemia, unspecified; D72.829 Elevated white blood cell count, unspecified; R53.1 Weakness; G89.29 Other chronic pain; M54.5 Low back pain; Z79.84 Long term (current) use of oral hypoglycemic drugs; Z79.899 Other long term (current) drug therapy
CPT/HCPCS: 36415; 70450; 70549; 70553; 71010; 72070; 72202; 80048; 80053; 80061; 81000; 81374; 83036; 83735; 84443; 84484; 85025; 85048; 85651; 86140; 92610; 93005; 93880; 96372; 96374; 96375; 97116; 97161; 99285; A9585; C8929; G0378; G0480; J1170; J1650; J1815; J1885; J2405; J7030; J7120